=== PATIENT | male | born 1955 | race Caucasian/White ===

== ENCOUNTER 2018-09-24 16:37 | Inpatient (IN) | payer MEDICAID ==
[~2018-09-24] VITALS: Ht 177.8 cm; Wt 69.8 kg
[2018-09-25 14:10] VITALS: BP 133/77
[2018-09-25] MEDS ORDERED: ACETAMINOPHEN 325 MG TABLET PO PRN (14:30)
[2018-09-25] MEDS ORDERED: BISACODYL 10 MG SUPP PR PRN (14:30)
[2018-09-25] MEDS ORDERED: ONDANSETRON ODT 4 MG PO PRN (14:30)
[2018-09-25] MEDS ORDERED: POLYETHYLENE GLYCOL 17 GM PACKET PO PRN (14:30)
[2018-09-25] MEDS ORDERED: QUETIAPINE 25MG TABLET PO PRN (14:30)
[2018-09-25] MEDS ORDERED: ASPI81TA45 PO (14:57)
[2018-09-25 14:58] VITALS: BP 133/77
[2018-09-25] MEDS ORDERED: SODI44SP NAS (15:17)
[2018-09-25] MEDS ORDERED: BISA10SU54 PR (15:17)
[2018-09-25] MEDS ORDERED: HYDR100T25 PO (15:17)
[2018-09-25] MEDS ORDERED: MELA3TAB62 PO (15:17)
[2018-09-25] MEDS ORDERED: LISI5TAB7 PO (15:17)
[2018-09-25] MEDS ORDERED: BUTA1CAP28 PO (15:17)
[2018-09-25] MEDS ORDERED: ATOR10TA9 PO (15:17)
[2018-09-25] MEDS ORDERED: DIVA125C2 PO (15:17)
[2018-09-25] MEDS ORDERED: FERR325T5 PO (15:17)
[2018-09-25] MEDS ORDERED: ERGO500017 PO (15:17)
[2018-09-25] MEDS ORDERED: MAGN400T7 PO (15:17)
[2018-09-25] MEDS ORDERED: TAMS-11 PO (15:17)
[2018-09-25] MEDS ORDERED: AMLO10TA4 PO (15:28)
[2018-09-25] MEDS ORDERED: OMEP-110 PO (15:28)
[2018-09-25] MEDS ORDERED: METO50TA6 PO (15:28)
[2018-09-25] MEDS ORDERED: OFLO5DRO7 RIGHTEYE (15:28)
[2018-09-25] MEDS ORDERED: MAGN400O7 PO (15:28)
[2018-09-25] MEDS ORDERED: PRED5DRO2 RIGHTEYE (15:30)
[2018-09-25] MEDS ORDERED: DIAZEPAM 5 MG/ML, 2ML IM PRN (16:30)
[2018-09-25] MEDS ORDERED: DIAZEPAM 5 MG TABLET PO PRN (16:30)
[2018-09-25 19:39] VITALS: BP 157/86
[2018-09-25] MEDS: DIVALPROEX 500 MG TABLET.DR PO SCH (21:15)
[2018-09-25] MEDS: QUETIAPINE 25MG TABLET PO SCH (21:16)
[2018-09-26 07:42] VITALS: BP 141/76
[2018-09-26] MEDS: SENNA/DOCUSATE TABLET PO SCH (08:30)
[2018-09-26] MEDS: DIVALPROEX 500 MG TABLET.DR PO SCH ×2 (08:30→20:09)
[2018-09-26] MEDS ORDERED: DIAZEPAM 5 MG TABLET PO PRN (14:30)
[2018-09-26] MEDS ORDERED: MELATONIN 3 MG TABLET PO PRN (14:30)
[2018-09-26] MEDS ORDERED: BISACODYL 10 MG SUPP PR PRN (14:30)
[2018-09-26] MEDS ORDERED: MAGNESIUM HYDROXIDE 8%, 30ML UDC PO PRN (14:30)
[2018-09-26] MEDS: FERROUS SULFATE 325 MG TABLET PO SCH (16:56)
[2018-09-26] MEDS: ERGOCALCIFEROL 50,000 UNIT CAPSULE PO SCH (16:56)
[2018-09-26 17:00] VITALS: BP 179/98
[2018-09-26 19:29] VITALS: BP 172/96
[2018-09-26] MEDS: QUETIAPINE 25MG TABLET PO SCH (20:08)
[2018-09-26] MEDS: METOPROLOL TARTRATE 50 MG TABLET PO SCH (20:10)
[2018-09-26] MEDS: ATORVASTATIN 10 MG TABLET PO SCH (20:27)
[2018-09-26] MEDS ORDERED: DIVALPROEX 125 MG CAP.SPRINK PO SCH (21:00)
[2018-09-27 07:56] VITALS: BP 160/98
[2018-09-27 08:00] VITALS: BP 160/98
[2018-09-27] MEDS: ASPIRIN 81 MG TABLET EC PO SCH (09:44)
[2018-09-27] MEDS: METOPROLOL TARTRATE 50 MG TABLET PO SCH ×2 (09:44→19:56)
[2018-09-27] MEDS: SENNA/DOCUSATE TABLET PO SCH (09:44)
[2018-09-27] MEDS: FERROUS SULFATE 325 MG TABLET PO SCH (09:44)
[2018-09-27] MEDS: LISINOPRIL 5 MG TABLET PO SCH (09:44)
[2018-09-27] MEDS: AMLODIPINE 10 MG TAB PO SCH (09:44)
[2018-09-27] MEDS: DIVALPROEX 500 MG TABLET.DR PO SCH ×2 (09:44→19:57)
[2018-09-27] MEDS: OMEPRAZOLE 20 MG CAPSULE.DR PO SCH (09:44)
[2018-09-27] MEDS: TAMSULOSIN 0.4 MG CAP.ER.24H PO SCH (09:45)
[2018-09-27] MEDS: predniSOLONE OPHTH 0.125%, 5ML RIGHTEYE SCH (10:16)
[2018-09-27] MEDS: OFLOXACIN OPHTH 0.3%, 5ML RIGHTEYE SCH (10:16)
[2018-09-27 11:37] VITALS: BP 162/94
[2018-09-27 19:22] VITALS: BP 124/78
[2018-09-27] MEDS: ATORVASTATIN 10 MG TABLET PO SCH (19:56)
[2018-09-27] MEDS: QUETIAPINE 25MG TABLET PO SCH (19:57)
[2018-09-28 07:37] VITALS: BP 155/83
[2018-09-28] MEDS: SENNA/DOCUSATE TABLET PO SCH (08:26)
[2018-09-28] MEDS: ASPIRIN 81 MG TABLET EC PO SCH (08:30)
[2018-09-28] MEDS: AMLODIPINE 10 MG TAB PO SCH (08:30)
[2018-09-28] MEDS: OMEPRAZOLE 20 MG CAPSULE.DR PO SCH (08:30)
[2018-09-28] MEDS: METOPROLOL TARTRATE 50 MG TABLET PO SCH ×2 (08:30→20:52)
[2018-09-28] MEDS: MAGNESIUM OXIDE 400 MG TABLET PO SCH (08:30)
[2018-09-28] MEDS: TAMSULOSIN 0.4 MG CAP.ER.24H PO SCH (08:30)
[2018-09-28] MEDS: LISINOPRIL 5 MG TABLET PO SCH (08:31)
[2018-09-28] MEDS: FERROUS SULFATE 325 MG TABLET PO SCH (08:31)
[2018-09-28] MEDS: DIVALPROEX 500 MG TABLET.DR PO SCH ×2 (08:31→20:52)
[2018-09-28] MEDS: OFLOXACIN OPHTH 0.3%, 5ML RIGHTEYE SCH (08:47)
[2018-09-28] MEDS: predniSOLONE OPHTH 0.125%, 5ML RIGHTEYE SCH (08:47)
[2018-09-28 12:20] VITALS: BP 118/71
[2018-09-28 16:15] VITALS: BP 155/71
[2018-09-28 16:30] LABS: MICROSCOPIC NOT IND
[2018-09-28 16:32] LABS: CULTURE INDICATED? NO
[2018-09-28 16:42] LABS: AMPHETAMINE SCREEN, URINE Negative (Negative); BARBITURATE SCREEN, URINE Negative (Negative); BENZODIAZEPINE SCREEN, URINE Negative (Negative); CANNABINOID SCREEN, URINE Negative (Negative); COCAINE SCREEN, URINE Negative (Negative); METHADONE SCREEN, URINE Negative (Negative); OPIATE SCREEN, URINE Negative (Negative)
[2018-09-28 19:32] VITALS: BP 123/75
[2018-09-28] MEDS: ATORVASTATIN 10 MG TABLET PO SCH (20:52)
[2018-09-28] MEDS: QUETIAPINE 25MG TABLET PO SCH (20:53)
[2018-09-29 07:45] VITALS: BP 153/83
[2018-09-29] MEDS: TAMSULOSIN 0.4 MG CAP.ER.24H PO SCH (09:04)
[2018-09-29] MEDS: FERROUS SULFATE 325 MG TABLET PO SCH (09:04)
[2018-09-29] MEDS: predniSOLONE OPHTH 0.125%, 5ML RIGHTEYE SCH (09:04)
[2018-09-29] MEDS: AMLODIPINE 10 MG TAB PO SCH (09:04)
[2018-09-29] MEDS: OFLOXACIN OPHTH 0.3%, 5ML RIGHTEYE SCH (09:04)
[2018-09-29] MEDS: OMEPRAZOLE 20 MG CAPSULE.DR PO SCH (09:05)
[2018-09-29] MEDS: LISINOPRIL 5 MG TABLET PO SCH (09:05)
[2018-09-29] MEDS: ASPIRIN 81 MG TABLET EC PO SCH (09:05)
[2018-09-29] MEDS: DIVALPROEX 500 MG TABLET.DR PO SCH ×2 (09:05→20:36)
[2018-09-29] MEDS: METOPROLOL TARTRATE 50 MG TABLET PO SCH ×2 (09:05→20:36)
[2018-09-29] MEDS: SENNA/DOCUSATE TABLET PO SCH (09:07)
[2018-09-29 16:07] VITALS: BP 149/80
[2018-09-29 19:35] VITALS: BP 152/88
[2018-09-29] MEDS: QUETIAPINE 25MG TABLET PO SCH (20:36)
[2018-09-29] MEDS: ATORVASTATIN 10 MG TABLET PO SCH (20:36)
[2018-09-30 07:23] VITALS: BP 171/82
[2018-09-30] MEDS: OMEPRAZOLE 20 MG CAPSULE.DR PO SCH (08:51)
[2018-09-30] MEDS: METOPROLOL TARTRATE 50 MG TABLET PO SCH ×2 (08:51→21:00)
[2018-09-30] MEDS: FERROUS SULFATE 325 MG TABLET PO SCH (08:51)
[2018-09-30] MEDS: MAGNESIUM OXIDE 400 MG TABLET PO SCH (08:51)
[2018-09-30] MEDS: DIVALPROEX 500 MG TABLET.DR PO SCH ×2 (08:52→21:03)
[2018-09-30] MEDS: SENNA/DOCUSATE TABLET PO SCH (08:52)
[2018-09-30] MEDS: TAMSULOSIN 0.4 MG CAP.ER.24H PO SCH (08:52)
[2018-09-30] MEDS: AMLODIPINE 10 MG TAB PO SCH (08:52)
[2018-09-30] MEDS: LISINOPRIL 5 MG TABLET PO SCH (08:52)
[2018-09-30] MEDS: predniSOLONE OPHTH 0.125%, 5ML RIGHTEYE SCH (08:58)
[2018-09-30] MEDS: OFLOXACIN OPHTH 0.3%, 5ML RIGHTEYE SCH (08:58)
[2018-09-30] MEDS: ASPIRIN 81 MG TABLET EC PO SCH (09:02)
[2018-09-30 11:30] VITALS: BP 165/83
[2018-09-30 16:18] VITALS: BP 143/79
[2018-09-30 19:51] VITALS: BP 109/63
[2018-09-30] MEDS: ATORVASTATIN 10 MG TABLET PO SCH (21:03)
[2018-09-30] MEDS: QUETIAPINE 25MG TABLET PO SCH (21:04)
[2018-10-01 07:43] VITALS: BP 148/83
[2018-10-01] MEDS: DIVALPROEX 500 MG TABLET.DR PO SCH ×2 (08:34→20:18)
[2018-10-01] MEDS: AMLODIPINE 10 MG TAB PO SCH (08:34)
[2018-10-01] MEDS: ASPIRIN 81 MG TABLET EC PO SCH (08:34)
[2018-10-01] MEDS: FERROUS SULFATE 325 MG TABLET PO SCH (08:34)
[2018-10-01] MEDS: TAMSULOSIN 0.4 MG CAP.ER.24H PO SCH (08:34)
[2018-10-01] MEDS: LISINOPRIL 5 MG TABLET PO SCH (08:35)
[2018-10-01] MEDS: OMEPRAZOLE 20 MG CAPSULE.DR PO SCH (08:35)
[2018-10-01] MEDS: SENNA/DOCUSATE TABLET PO SCH (08:35)
[2018-10-01] MEDS: METOPROLOL TARTRATE 50 MG TABLET PO SCH ×2 (08:35→20:18)
[2018-10-01] MEDS: predniSOLONE OPHTH 0.125%, 5ML RIGHTEYE SCH (08:37)
[2018-10-01] MEDS: OFLOXACIN OPHTH 0.3%, 5ML RIGHTEYE SCH (08:37)
[2018-10-01 11:30] VITALS: BP 153/79
[2018-10-01 16:00] VITALS: BP 148/82
[2018-10-01 19:35] VITALS: BP 129/70
[2018-10-01] MEDS: ATORVASTATIN 10 MG TABLET PO SCH (20:18)
[2018-10-01] MEDS: QUETIAPINE 25MG TABLET PO SCH (20:19)
[2018-10-02 07:40] VITALS: BP 145/81
[2018-10-02] MEDS: ASPIRIN 81 MG TABLET EC PO SCH (08:36)
[2018-10-02] MEDS: FERROUS SULFATE 325 MG TABLET PO SCH (08:36)
[2018-10-02] MEDS: TAMSULOSIN 0.4 MG CAP.ER.24H PO SCH (08:36)
[2018-10-02] MEDS: OMEPRAZOLE 20 MG CAPSULE.DR PO SCH (08:36)
[2018-10-02] MEDS: AMLODIPINE 10 MG TAB PO SCH (08:36)
[2018-10-02] MEDS: predniSOLONE OPHTH 0.125%, 5ML RIGHTEYE SCH (08:36)
[2018-10-02] MEDS: OFLOXACIN OPHTH 0.3%, 5ML RIGHTEYE SCH (08:36)
[2018-10-02] MEDS: DIVALPROEX 500 MG TABLET.DR PO SCH ×2 (08:36→20:53)
[2018-10-02] MEDS: METOPROLOL TARTRATE 50 MG TABLET PO SCH ×2 (08:36→20:53)
[2018-10-02] MEDS: MAGNESIUM OXIDE 400 MG TABLET PO SCH (08:36)
[2018-10-02] MEDS: LISINOPRIL 5 MG TABLET PO SCH (08:36)
[2018-10-02] MEDS: SENNA/DOCUSATE TABLET PO SCH (08:37)
[2018-10-02 11:29] VITALS: BP 140/78
[2018-10-02 16:20] VITALS: BP 154/82
[2018-10-02 19:39] VITALS: BP 136/79
[2018-10-02] MEDS: QUETIAPINE 25MG TABLET PO SCH (20:53)
[2018-10-02] MEDS: ATORVASTATIN 10 MG TABLET PO SCH (20:53)
[2018-10-03 07:40] VITALS: BP 162/85
[2018-10-03] MEDS: ASPIRIN 81 MG TABLET EC PO SCH (09:21)
[2018-10-03] MEDS: METOPROLOL TARTRATE 50 MG TABLET PO SCH ×2 (09:22→20:23)
[2018-10-03] MEDS: DIVALPROEX 500 MG TABLET.DR PO SCH ×2 (09:22→20:22)
[2018-10-03] MEDS: OMEPRAZOLE 20 MG CAPSULE.DR PO SCH (09:22)
[2018-10-03] MEDS: predniSOLONE OPHTH 0.125%, 5ML RIGHTEYE SCH (09:23)
[2018-10-03] MEDS: LISINOPRIL 5 MG TABLET PO SCH (09:23)
[2018-10-03] MEDS: AMLODIPINE 10 MG TAB PO SCH (09:23)
[2018-10-03] MEDS: TAMSULOSIN 0.4 MG CAP.ER.24H PO SCH (09:23)
[2018-10-03] MEDS: FERROUS SULFATE 325 MG TABLET PO SCH (09:23)
[2018-10-03] MEDS: OFLOXACIN OPHTH 0.3%, 5ML RIGHTEYE SCH (09:24)
[2018-10-03] MEDS: SENNA/DOCUSATE TABLET PO SCH (09:35)
[2018-10-03] MEDS: ERGOCALCIFEROL 50,000 UNIT CAPSULE PO SCH (15:49)
[2018-10-03 19:23] VITALS: BP 108/63
[2018-10-03] MEDS: QUETIAPINE 25MG TABLET PO SCH (20:22)
[2018-10-03] MEDS: ATORVASTATIN 10 MG TABLET PO SCH (20:23)
[2018-10-04] MEDS: predniSOLONE OPHTH 0.125%, 5ML RIGHTEYE SCH (08:15)
[2018-10-04] MEDS: TAMSULOSIN 0.4 MG CAP.ER.24H PO SCH (08:15)
[2018-10-04] MEDS: OFLOXACIN OPHTH 0.3%, 5ML RIGHTEYE SCH (08:15)
[2018-10-04] MEDS: SENNA/DOCUSATE TABLET PO SCH (08:16)
[2018-10-04] MEDS: AMLODIPINE 10 MG TAB PO SCH (08:16)
[2018-10-04] MEDS: METOPROLOL TARTRATE 50 MG TABLET PO SCH ×2 (08:16→20:28)
[2018-10-04] MEDS: MAGNESIUM OXIDE 400 MG TABLET PO SCH (08:16)
[2018-10-04] MEDS: LISINOPRIL 5 MG TABLET PO SCH (08:16)
[2018-10-04] MEDS: FERROUS SULFATE 325 MG TABLET PO SCH (08:16)
[2018-10-04] MEDS: OMEPRAZOLE 20 MG CAPSULE.DR PO SCH (08:16)
[2018-10-04] MEDS: DIVALPROEX 500 MG TABLET.DR PO SCH ×2 (08:16→20:27)
[2018-10-04] MEDS: ASPIRIN 81 MG TABLET EC PO SCH (08:16)
[2018-10-04 08:36] VITALS: BP 145/78
[2018-10-04 19:40] VITALS: BP 142/76
[2018-10-04] MEDS: ATORVASTATIN 10 MG TABLET PO SCH (20:28)
[2018-10-04] MEDS: QUETIAPINE 25MG TABLET PO SCH (20:29)
[2018-10-05 07:40] VITALS: BP 131/74
[2018-10-05] MEDS: AMLODIPINE 10 MG TAB PO SCH (08:32)
[2018-10-05] MEDS: OMEPRAZOLE 20 MG CAPSULE.DR PO SCH (08:33)
[2018-10-05] MEDS: DIVALPROEX 500 MG TABLET.DR PO SCH ×2 (08:35→20:48)
[2018-10-05] MEDS: FERROUS SULFATE 325 MG TABLET PO SCH (08:35)
[2018-10-05] MEDS: ASPIRIN 81 MG TABLET EC PO SCH (08:35)
[2018-10-05] MEDS: TAMSULOSIN 0.4 MG CAP.ER.24H PO SCH (08:36)
[2018-10-05] MEDS: LISINOPRIL 5 MG TABLET PO SCH (08:36)
[2018-10-05] MEDS: SENNA/DOCUSATE TABLET PO SCH (08:38)
[2018-10-05] MEDS: OFLOXACIN OPHTH 0.3%, 5ML RIGHTEYE SCH (08:38)
[2018-10-05] MEDS: predniSOLONE OPHTH 0.125%, 5ML RIGHTEYE SCH (08:38)
[2018-10-05] MEDS: METOPROLOL TARTRATE 50 MG TABLET PO SCH ×2 (08:38→20:47)
[2018-10-05 19:38] VITALS: BP 117/67
[2018-10-05] MEDS: ATORVASTATIN 10 MG TABLET PO SCH (20:47)
[2018-10-05] MEDS: QUETIAPINE 25MG TABLET PO SCH (20:49)
[2018-10-06 07:29] VITALS: BP 160/83
[2018-10-06] MEDS: OFLOXACIN OPHTH 0.3%, 5ML RIGHTEYE SCH (09:13)
[2018-10-06] MEDS: predniSOLONE OPHTH 0.125%, 5ML RIGHTEYE SCH (09:13)
[2018-10-06] MEDS: MAGNESIUM OXIDE 400 MG TABLET PO SCH (09:15)
[2018-10-06] MEDS: OMEPRAZOLE 20 MG CAPSULE.DR PO SCH (09:15)
[2018-10-06] MEDS: METOPROLOL TARTRATE 50 MG TABLET PO SCH ×2 (09:15→20:12)
[2018-10-06] MEDS: DIVALPROEX 500 MG TABLET.DR PO SCH ×2 (09:16→20:12)
[2018-10-06] MEDS: ASPIRIN 81 MG TABLET EC PO SCH (09:16)
[2018-10-06] MEDS: TAMSULOSIN 0.4 MG CAP.ER.24H PO SCH (09:16)
[2018-10-06] MEDS: AMLODIPINE 10 MG TAB PO SCH (09:16)
[2018-10-06] MEDS: SENNA/DOCUSATE TABLET PO SCH (09:16)
[2018-10-06] MEDS: FERROUS SULFATE 325 MG TABLET PO SCH (09:16)
[2018-10-06] MEDS: LISINOPRIL 5 MG TABLET PO SCH (09:17)
[2018-10-06 16:52] VITALS: BP 130/69
[2018-10-06 19:23] VITALS: BP 122/71
[2018-10-06] MEDS: ATORVASTATIN 10 MG TABLET PO SCH (20:12)
[2018-10-06] MEDS: QUETIAPINE 25MG TABLET PO SCH (20:13)
[2018-10-07 07:25] VITALS: BP 155/77
[2018-10-07] MEDS: TAMSULOSIN 0.4 MG CAP.ER.24H PO SCH (08:44)
[2018-10-07] MEDS: ASPIRIN 81 MG TABLET EC PO SCH (08:44)
[2018-10-07] MEDS: FERROUS SULFATE 325 MG TABLET PO SCH (08:44)
[2018-10-07] MEDS: LISINOPRIL 5 MG TABLET PO SCH (08:44)
[2018-10-07] MEDS: OFLOXACIN OPHTH 0.3%, 5ML RIGHTEYE SCH (08:44)
[2018-10-07] MEDS: predniSOLONE OPHTH 0.125%, 5ML RIGHTEYE SCH (08:44)
[2018-10-07] MEDS: OMEPRAZOLE 20 MG CAPSULE.DR PO SCH (08:45)
[2018-10-07] MEDS: DIVALPROEX 500 MG TABLET.DR PO SCH ×2 (08:45→20:35)
[2018-10-07] MEDS: SENNA/DOCUSATE TABLET PO SCH (08:45)
[2018-10-07] MEDS: METOPROLOL TARTRATE 50 MG TABLET PO SCH ×2 (08:45→20:37)
[2018-10-07] MEDS: AMLODIPINE 10 MG TAB PO SCH (08:46)
[2018-10-07 11:12] VITALS: BP 115/70
[2018-10-07 16:38] VITALS: BP 147/85
[2018-10-07 19:29] VITALS: BP 142/89
[2018-10-07] MEDS: QUETIAPINE 25MG TABLET PO SCH (20:36)
[2018-10-07] MEDS: ATORVASTATIN 10 MG TABLET PO SCH (20:39)
[2018-10-08 07:18] VITALS: BP 144/80
[2018-10-08] MEDS: AMLODIPINE 10 MG TAB PO SCH (08:43)
[2018-10-08] MEDS: OMEPRAZOLE 20 MG CAPSULE.DR PO SCH (08:43)
[2018-10-08] MEDS: predniSOLONE OPHTH 0.125%, 5ML RIGHTEYE SCH (08:43)
[2018-10-08] MEDS: OFLOXACIN OPHTH 0.3%, 5ML RIGHTEYE SCH (08:43)
[2018-10-08] MEDS: MAGNESIUM OXIDE 400 MG TABLET PO SCH (08:43)
[2018-10-08] MEDS: FERROUS SULFATE 325 MG TABLET PO SCH (08:44)
[2018-10-08] MEDS: DIVALPROEX 500 MG TABLET.DR PO SCH ×2 (08:44→21:32)
[2018-10-08] MEDS: METOPROLOL TARTRATE 50 MG TABLET PO SCH ×2 (08:44→21:33)
[2018-10-08] MEDS: ASPIRIN 81 MG TABLET EC PO SCH (08:44)
[2018-10-08] MEDS: SENNA/DOCUSATE TABLET PO SCH (08:44)
[2018-10-08] MEDS: TAMSULOSIN 0.4 MG CAP.ER.24H PO SCH (08:44)
[2018-10-08] MEDS: LISINOPRIL 5 MG TABLET PO SCH (08:44)
[2018-10-08 13:04] VITALS: BP 116/68
[2018-10-08 16:29] VITALS: BP 115/68
[2018-10-08] MEDS ORDERED: QUET25TA PO ×2 (17:54)
[2018-10-08] MEDS ORDERED: ERGO500017 PO (17:54)
[2018-10-08] MEDS ORDERED: ATOR10TA9 PO (17:54)
[2018-10-08] MEDS ORDERED: SENN1TAB8 PO (17:54)
[2018-10-08] MEDS ORDERED: DIVA-61 PO (17:54)
[2018-10-08] MEDS ORDERED: ASPI81TA45 PO (17:54)
[2018-10-08] MEDS ORDERED: AMLO10TA6 PO (17:54)
[2018-10-08] MEDS ORDERED: FERR-51 PO (17:54)
[2018-10-08 19:43] VITALS: BP 134/77
[2018-10-08] MEDS: QUETIAPINE 25MG TABLET PO SCH (21:32)
[2018-10-08] MEDS: ATORVASTATIN 10 MG TABLET PO SCH (21:32)
[2018-10-09 05:38] VITALS: BP 142/79
[2018-10-09 07:13] VITALS: BP 144/77
[2018-10-09] MEDS: FERROUS SULFATE 325 MG TABLET PO SCH (08:24)
[2018-10-09] MEDS: DIVALPROEX 500 MG TABLET.DR PO SCH (08:24)
[2018-10-09] MEDS: TAMSULOSIN 0.4 MG CAP.ER.24H PO SCH (08:25)
[2018-10-09] MEDS: AMLODIPINE 10 MG TAB PO SCH (08:25)
[2018-10-09] MEDS: LISINOPRIL 5 MG TABLET PO SCH (08:25)
[2018-10-09] MEDS: OMEPRAZOLE 20 MG CAPSULE.DR PO SCH (08:25)
[2018-10-09] MEDS: SENNA/DOCUSATE TABLET PO SCH (08:25)
[2018-10-09] MEDS: METOPROLOL TARTRATE 50 MG TABLET PO SCH (08:26)
[2018-10-09] MEDS: ASPIRIN 81 MG TABLET EC PO SCH (08:26)
[2018-10-09] MEDS: OFLOXACIN OPHTH 0.3%, 5ML RIGHTEYE SCH (09:19)
[2018-10-09] MEDS: predniSOLONE OPHTH 0.125%, 5ML RIGHTEYE SCH (09:19)
== END 2018-10-09 17:47 | DRG 884 ==
LOC: 3E 09-25 13:45
PROVIDERS: ADMIT Psychiatry & Neurology Psychosomatic Medicine; ATTEND Psychiatry & Neurology Psychosomatic Medicine
DX: F01.51 Vascular dementia, unspecified severity, with behavioral disturbance (principal); F39 Unspecified mood [affective] disorder; F10.21 Alcohol dependence, in remission; E78.5 Hyperlipidemia, unspecified; D50.9 Iron deficiency anemia, unspecified; F41.9 Anxiety disorder, unspecified; G40.909 Epilepsy, unspecified, not intractable, without status epilepticus; G89.29 Other chronic pain; G47.00 Insomnia, unspecified; I12.9 Hypertensive chronic kidney disease with stage 1 through stage 4 chronic kidney disease, or unspecified chronic kidney disease; N18.9 Chronic kidney disease, unspecified; K59.00 Constipation, unspecified; I25.10 Atherosclerotic heart disease of native coronary artery without angina pectoris; K21.9 Gastro-esophageal reflux disease without esophagitis; Z79.82 Long term (current) use of aspirin; Z79.899 Other long term (current) drug therapy; Z86.73 Personal history of transient ischemic attack (TIA), and cerebral infarction without residual deficits; Z87.440 Personal history of urinary (tract) infections; R29.6 Repeated falls; N52.9 Male erectile dysfunction, unspecified; Z68.22 Body mass index [BMI] 22.0-22.9, adult; Z88.1 Allergy status to other antibiotic agents
CPT/HCPCS: 71045; 80307; 81003; 93005; 92523-GN